=== PATIENT | male | born 1970 | race Caucasian/White ===

== ENCOUNTER 2019-01-01 14:51 | Observation (INO) | payer MEDICAID, SELFPAY ==
[2019-01-01 14:52] VITALS: BP 107/73; PULSE 75; PULSE 77; RESP 17; RESP 18; TEMP 36.4; O2SAT 97; BMI 24.3
--- NOTE | 2019-01-01 15:35 | ED.VISSUMM ---
- ER Visit Summary Date of Service: 01/01/19 Chief Complaint: Request heroin detox History of Present Illness: The patient is a 48 M presenting requesting heroin detox. Patient states that he typically uses 1/2 to 1 g of heroin per day. He has been using for the past 2 months. Prior to that he was on Suboxone. His last use was on Sunday night. He uses heroin and marijuana. Denies alcohol or other drug use. He complains of mild abdominal cramping, nausea, feeling fidgety. He called [facility] and was advised to come to the ED for admission. Physical Examination: Vitals are stable. Patient is afebrile. Alert no acute distress. HEENT exam is unremarkable. Neck is supple. Lungs are clear and equal bilaterally. Heart is regular rate and rhythm. Abdomen is soft nontender nondistended. Extremities are unremarkable. Skin is warm and dry. No focal neurologic deficit. Remainder of exam is unremarkable. Emergency Department Course and Treatment: CBC, chemistries unremarkable. Alcohol negative. Tox positive for opiates, amphetamines, cannabinoids. Discussed with hospitalist for admission. Disposition: Admission Impression: Heroin withdrawal This note was generated with [employer] dictation software. It may contain incorrect words, spelling, and punctuation that were not noted in review of the chart prior to signing ED Disposition - Plan for ED Patient: Referrals: NOT,DEFINED [NON-STAFF] -
[2019-01-01 15:45] LABS: Absolute Lymphocyte Count 2.29 X10^3/ul (0.83-4.51); Absolute Neutrophil Count 4.4 X10^3/uL (2.0-7.7); Basophil# 0.03 X10^3/uL; Basophil% 0.4 % (0-1); Eosinophil# 0.36 X10^3/uL; Eosinophils% 4.7 % (0-5); Hematocrit 36.8 % (40-54); Hemoglobin 12.7 g/dl (13.0-16.5); Lymphocyte # 2.29 X10^3/ul (4.0); Lymphocyte % 29.7 % (19-41); Mean Corp Hgb Conc 34.5 g/gl (32-36); Mean Corpuscular Hgb 30.5 pg (27.0-32.0); Mean Corpuscular Volume 88.5 fL (80-94); Mean Platelet Vol. 9.9 fl (6.2-12.0); Monocyte# 0.62 X10^3/uL; Neutrophil % 57.1 % (47-70); Platelet Count 177 K/mm3 (150-450); RBC Distribution Width CV 13.3 % (11.6-14.6); RBC Distribution Width SD 42.9 fl (35.1-43.9); Red Blood Count 4.16 M/mm3 (4.6-6.2); White Blood Count 7.7 K/mm3 (4.4-11.0)
[2019-01-01 15:46] LABS: POSITIVE COUNT NO; POSITIVE DIFFERENTIAL NO; POSITIVE MORPHOLOGY NO
[2019-01-01 15:54] LABS: Anion Gap 5 (5-15); BUN 9 mg/dL (7-18); BUN/Creat Ratio 10.4 RATIO (10-20); Calcium,Total 8.9 mg/dL (8.5-10.1); Chloride 107 mmol/L (98-107); Creatinine, Serum 0.86 mg/dL (0.70-1.30); EST Glomerular Filtration Rate 101 mL/min (>60); Est Glom Filt Rate - Afr Amer 122 mL/min (>60); Estimated Creatinine Clearance 99.28 ml/min; Glucose 129 mg/dL (74-106); Potassium 3.7 mmol/L (3.5-5.1); Sodium Level 144 mmol/L (136-145)
[2019-01-01 16:04] LABS: Amphetamine Urine VISTA POSITIVE (<1000 ng/mL); Barbiturate Urine VISTA NEGATIVE (< 200 ng/mL); Benzodiazepine Urine VISTA NEGATIVE (< 200 ng/mL); Cocaine Urine VISTA NEGATIVE (< 300 ng/mL); Ecstacy Urine VISTA NEGATIVE (< 500 ng/mL); Methadone Urine VISTA NEGATIVE (< 300 ng/mL); PCP Urine VISTA NEGATIVE (< 25 ng/mL); THC Urine VISTA POSITIVE (< 50 ng/mL); Vista UDS pH Range 7
[2019-01-01 16:12] LABS: Alcohol, Blood (Medical)-Serum < 3.0 mg/dL
--- NOTE | 2019-01-01 16:52 | NURSING ---
DR JUAN CARRERA
--- NOTE | 2019-01-01 16:53 | NURSING ---
MED SURG HEROIN WITHDRAWAL ASHELFAH
--- NOTE | 2019-01-01 17:02 | HP.PCM_ITS ---
Problem List (1) Acute opioid withdrawal Status: Acute (2) Opioid abuse Status: Chronic (3) Asthma Status: Chronic History of Present Illness Date of Admission: 01/01/19 Chief Complaint: Acute opiate withdrawal. The patient is a 48 year old M with past medical history as mentioned above presented to the emergency room requesting admission for acute opiate withdrawal for medical stabilization. Patient has been using IV heroin half to 1 g every day for the last 2 months and his last use was this past Sunday. He has been using IV heroin intermittently for most of his life and he failed detoxification in the past and he relapsed. Also, he admitted smoking marijuana sometimes. Today, he presented to the ED because of abdominal cramps, mild, associated with nausea and diarrhea as well as body aches and pains and without aggravating or relieving factors. He reported anxiety and restlessness were as well. In the emergency department, his vital signs were stable. His routine blood work was unremarkable. Urine drug screen was positive for opioids, amphetamines and cannabinoids. Blood alcohol level is less than 3. He is being admitted for acute opiate withdrawal for medical stabilization. Past Medical History Past Medical History (Chronic Problems): Chronic Problems Opioid abuse (Chronic) Asthma (Chronic) Allergies No Known Allergies Allergy (Verified 01/01/19 14:52) Home Medications: Ambulatory Orders Medication Instructions Recorded Albuterol Sulfate [Albuterol 18 gm IH Q4H PRN PRN 01/01/19 Sulfate Hfa] Clonidine HCl [Catapres] 0.1 mg PO 4X/DAY 01/01/19 Dicyclomine HCl 20 mg PO TID 01/01/19 Ondansetron [Zofran Odt] 4 mg PO Q8H PRN PRN 01/01/19 hydrOXYzine pamoate capsule 25 mg PO TID PRN PRN 01/01/19 [Vistaril pamoate capsule] Surgical History: no surgical history Psychiatric History: No pertinent psych hx Smoking Status: Current every day smoker Tobacco Use: Cigarettes Alcohol: None Drugs: Heroin, Marijuana - *Family History Maternal History Items: Diabetes, Hypertension Paternal History Items: Diabetes, Hypertension Review of Systems Constitutional: Reports: Malaise, Fatigue. Denies: Anorexia, Chills, Fever, Weakness Eyes: Denies: Blurred vision, Double vision, Drainage, Redness HEENT: Denies: Difficulty Hearing, Ear Pain, Eye Pain, Nasal Congestion, Sore Throat Cardiovascular: Denies: Chest Pain, Chest Pressure, Edema, Heaviness, Light Headedness, Palpitations, Syncope Respiratory: Denies: Cough, Pleuritic Pain, Shortness of Breath, Shortness of breath at rest, Sputum production, Wheezing Gastrointestinal: Reports: Diarrhea, Nausea. Denies: Abdominal Pain, Constipation, Vomiting Genitourinary: Denies: Dysuria, Frequency, Hematuria Musculoskeletal: Reports: Muscle pain. Denies: Arm Pain, Back Pain, Foot Pain Skin: Denies: Dryness, Rash Neurological: Denies: Balance problems, Double vision, Change in Speech, Slurred speech, Confusion, Focal weakness, Headaches, Incoordination Psychiatric: Denies: Anxiety, Depression Endocrine: Denies: Change in Body Habitus, Polydipsia, Polyuria VTE Information - Inpt Only VTE Present on Admission: No VTE Mechan Device Prophylaxis: None VTE Pharm Prophylaxis ordered?: No Patient Problems: Active and Suspected Problems Acute opioid withdrawal (Acute) - Physical Exam General: Alert, Oriented x3, Cooperative, No apparent distress HEENT: Atraumatic, PERRLA, EOMI, Normocephalic Oral: Moist Mucosa, No Gingival or Mucosal Lesions/ Ulcerations Neck: Supple, No JVD, Negative Carotid Bruits, Trachea Midline, Thyroid Normal Size and Texture Lungs: Clear to auscultation, Normal air movement, No rhonchi, No wheeze, No rales Cardiovascular: Regular rate, Regular Rhythm, Normal S1, Normal S2, No murmurs Abdomen: Bowel Sounds Present, Soft, Non Tender, Non-Distended, No Hepato-spl enomegaly Extremities: No clubbing, No cyanosis, No edema Skin: No rashes, No breakdown Lymphatic: No Cervical, Supraclavicular, or Inguinal Adenopathy Neurological: Cranial nerves II-XII grossly intact, Motor Exam 5/5 strength throughout Psych/Mental Status: Normal Affect, Appropriate, Alert and oriented to time, place, person, mood and affect Vital Signs Temp Pulse Resp BP Pulse Ox 97.5 F L 77 18 107/73 97 01/01/19 14:52 01/01/19 14:52 01/01/19 14:52 01/01/19 14:52 01/01/19 14:52 Oxygen Delivery Method Room Air Weight: 154 lb 15.759 oz Body Mass Index (BMI) 24.3 Laboratory Tests Past 24 Hrs 01/01/19 01/01/19 01/01/19 15:35 15:35 15:35 WBC 7.7 RBC 4.16 L Hgb 12.7 L Hct 36.8 L MCV 88.5 MCH 30.5 MCHC 34.5 RDW 13.3 RDW Differential 42.9 Plt Count 177 MPV 9.9 Immature Gran % (Auto) 0.100 Neut % (Auto) 57.1 Lymph % (Auto) 29.7 [place] % (Auto) 8.0 Eos % (Auto) 4.7 Baso % (Auto) 0.4 Absolute Neuts (auto) 4.4 Absolute Lymphs (auto) 2.29 Total Counted Not Reportable Sodium 144 Potassium 3.7 Chloride 107 Carbon Dioxide 32.0 Anion Gap 5 BUN 9 Creatinine 0.86 Estim Creat Clear Calc 99.28 Est GFR (MDRD) Af Amer 122 Est GFR (MDRD) Non-Af 101 BUN/Creatinine Ratio 10.4 Glucose 129 H Calcium 8.9 Urine Opiates Screen Urine Methadone Screen Ur Barbiturates Screen Ur Phencyclidine Scrn Ur Amphetamines Screen U Methamphetamin-MDMA U Benzodiazepines Scrn Urine Cocaine Screen U Cannabinoids Screen Ur Drug Screen Comment Ethyl Alcohol < 3.0 01/01/19 15:42 WBC RBC Hgb Hct MCV MCH MCHC RDW RDW Differential Plt Count MPV Immature Gran % (Auto) Neut % (Auto) Lymph % (Auto) [place] % (Auto) Eos % (Auto) Baso % (Auto) Absolute Neuts (auto) Absolute Lymphs (auto) Total Counted Sodium Potassium Chloride Carbon Dioxide Anion Gap BUN Creatinine Estim Creat Clear Calc Est GFR (MDRD) Af Amer Est GFR (MDRD) Non-Af BUN/Creatinine Ratio Glucose Calcium Urine Opiates Screen POSITIVE H Urine Methadone Screen NEGATIVE Ur Barbiturates Screen NEGATIVE Ur Phencyclidine Scrn NEGATIVE Ur Amphetamines Screen POSITIVE H U Methamphetamin-MDMA NEGATIVE U Benzodiazepines Scrn NEGATIVE Urine Cocaine Screen NEGATIVE U Cannabinoids Screen POSITIVE H Ur Drug Screen Comment Ethyl Alcohol Assessment/Plan All Active Problems Acute opioid withdrawal (Acute) This is a 48 years old male patient presented to the emergency department requesting admission for acute opioid withdrawal for medical stabilization. #1 acute opioid withdrawal: Patient has been using IV heroin daily over the last couple of months, has been using IV heroin intermittently for most of his life and he failed medical stabilization in the past and relapsed. His vital signs are stable. Routine blood work was unremarkable. Urine drug screen was reviewed as above. Plan: Admit to MedSurg floor, initiate [facility] protocol with every course of Subutex, PRN Tylenol, ibuprofen, Catapres, Bentyl, Vistaril, methocarbamol, Zofran, Mirapex and nightly trazodone. #2 asthma currently stable, pulse ox is maintained on room air. #3 tobacco abuse: NicoDerm patch. #4 DVT prophylaxis: Low risk patient, no prophylaxis indicated. This note was generated with [employer] dictation software. It may contain incorrect words, spelling, and punctuation that were not noted in checking the note before signing. Code Visit Inpatient E&M: 99896 Init Hosp L2
[2019-01-01 17:24] VITALS: BP 115/69; PULSE 76; RESP 18; O2SAT 98
[2019-01-01 17:58] VITALS: BMI 24.9
[2019-01-01 18:00] VITALS: BP 109/60; PULSE 74; RESP 18; TEMP 36.8
[2019-01-01] MEDS: Methocarbamol 750 MG Tablet PO (18:36)
[2019-01-01] MEDS: Buprenorphine HCl 2 MG TAB.SUBL SL (18:36)
[2019-01-01] MEDS: hydrOXYzine PAM 25 MG Capsule 50 MG PO (18:36)
[2019-01-01] MEDS: Dicyclomine 10 MG Capsule 20 MG PO (18:39)
[2019-01-01 21:18] VITALS: BP 115/65; PULSE 76; RESP 18; TEMP 36.7
[2019-01-01] MEDS: traZODone 50 MG Tablet PO (21:23)
[2019-01-01] MEDS: Pramipexole Di-HCl 0.25 MG Tablet PO (21:23)
[2019-01-01] MEDS: Ondansetron ODT 4 MG Tablet PO (21:25)
[2019-01-02 02:37] VITALS: BP 120/69; PULSE 57; RESP 16; TEMP 36.6
[2019-01-02] MEDS: Buprenorphine HCl 2 MG TAB.SUBL SL ×3 (02:40→18:33)
[2019-01-02 06:41] VITALS: BP 126/88; PULSE 58; RESP 16; TEMP 36.9
--- NOTE | 2019-01-02 07:32 | NURSING ---
Left a message for [facility] to see patient.
[2019-01-02 10:00] VITALS: BP 128/78; PULSE 69; RESP 16; RESP 18; TEMP 36.8
[2019-01-02] MEDS: Ondansetron ODT 4 MG Tablet PO ×2 (10:00→19:56)
[2019-01-02] MEDS: Ibuprofen 600 MG Tablet PO ×2 (10:00→19:56)
[2019-01-02] MEDS: cloNIDine HCl 0.1 MG Tablet PO (10:05)
--- NOTE | 2019-01-02 10:20 | [facility] ---
Patient has follow up appointment with [facility] on 01/06/19 and 01/09/19 for labwork follow up and AOD assessment. Patient states his emergency contact, Dennis, will be picking him up on from the hospital when he is discharged.
--- NOTE | 2019-01-02 12:24 | PN_ITS ---
Patient Problems: Active and Suspected Problems Acute opioid withdrawal (Acute) Subjective: Pt states medication for RLS made RLS worse and that he could not sleep. He is requesting neurontin. Feels worse today. C/o ongoing RLS, body aches, anxiety. No acute issues. Plans on pursuing inpatient rehab at [facility] and vivitrol injections in [place]. - Physical Exam General: Alert, Oriented x3, Cooperative HEENT: Atraumatic, PERRLA, EOMI, Normocephalic Neck: Supple, No JVD, Negative Carotid Bruits Lungs: Clear to auscultation, Normal air movement Cardiovascular: Regular rate, No murmurs Abdomen: Bowel Sounds Present, Soft, Non Tender Extremities: No edema, Capillary Refill Less than 3 Seconds Skin: No rashes, No breakdown Musculoskeletal: No Tenderness to Palpation of Joints or Extremities Neurological: Cranial nerves II-XII grossly intact Psych/Mental Status: Normal Affect, Appropriate, Alert and oriented to time, place, person, mood and affect Vital Signs Temp Pulse Resp BP Pulse Ox 98.3 F 69 16 128/78 H 98 01/02/19 10:00 01/02/19 10:00 01/02/19 10:00 01/02/19 10:00 01/01/19 17:24 Oxygen Delivery Method Room Air Weight: 159 lb 2.78 oz Body Mass Index (BMI) 24.9 Laboratory Tests Past 24 Hrs 01/01/19 01/01/19 01/01/19 15:35 15:35 15:35 WBC 7.7 RBC 4.16 L Hgb 12.7 L Hct 36.8 L MCV 88.5 MCH 30.5 MCHC 34.5 RDW 13.3 RDW Differential 42.9 Plt Count 177 MPV 9.9 Immature Gran % (Auto) 0.100 Neut % (Auto) 57.1 Lymph % (Auto) 29.7 [place] % (Auto) 8.0 Eos % (Auto) 4.7 Baso % (Auto) 0.4 Absolute Neuts (auto) 4.4 Absolute Lymphs (auto) 2.29 Total Counted Not Reportable Sodium 144 Potassium 3.7 Chloride 107 Carbon Dioxide 32.0 Anion Gap 5 BUN 9 Creatinine 0.86 Estim Creat Clear Calc 99.28 Est GFR (MDRD) Af Amer 122 Est GFR (MDRD) Non-Af 101 BUN/Creatinine Ratio 10.4 Glucose 129 H Calcium 8.9 Urine Opiates Screen Urine Methadone Screen Ur Barbiturates Screen Ur Phencyclidine Scrn Ur Amphetamines Screen U Methamphetamin-MDMA U Benzodiazepines Scrn Urine Cocaine Screen U Cannabinoids Screen Ur Drug Screen Comment Ethyl Alcohol < 3.0 01/01/19 15:42 WBC RBC Hgb Hct MCV MCH MCHC RDW RDW Differential Plt Count MPV Immature Gran % (Auto) Neut % (Auto) Lymph % (Auto) [place] % (Auto) Eos % (Auto) Baso % (Auto) Absolute Neuts (auto) Absolute Lymphs (auto) Total Counted Sodium Potassium Chloride Carbon Dioxide Anion Gap BUN Creatinine Estim Creat Clear Calc Est GFR (MDRD) Af Amer Est GFR (MDRD) Non-Af BUN/Creatinine Ratio Glucose Calcium Urine Opiates Screen POSITIVE H Urine Methadone Screen NEGATIVE Ur Barbiturates Screen NEGATIVE Ur Phencyclidine Scrn NEGATIVE Ur Amphetamines Screen POSITIVE H U Methamphetamin-MDMA NEGATIVE U Benzodiazepines Scrn NEGATIVE Urine Cocaine Screen NEGATIVE U Cannabinoids Screen POSITIVE H Ur Drug Screen Comment Ethyl Alcohol Medical Necessity - Tobacco Use Smoking Status: Current every day smoker Tobacco Use: Cigarettes Assessment/Plan All Active Problems Acute opioid withdrawal (Acute) 1. Acute opioid withdrawal - continue currently plan. IV heroin 1/2-1g per day for last two months. Last detox followed by 1 year successful suboxone therapy as o/p. 2. Asthma - no exacerbation. 3. Tobacco abuse - patch DVT ppx: early ambulation Medical stabilization day 2 of 4. This patient was seen by Sebas Siegel PA-C under the supervision of Dr. Thomas.
[2019-01-02 14:00] VITALS: BP 114/72; PULSE 65; RESP 16; TEMP 37.2
[2019-01-02] MEDS: hydrOXYzine PAM 25 MG Capsule 50 MG PO (14:21)
--- NOTE | 2019-01-02 14:31 | CHAPLAIN ---
Type of Pastoral Visit _x__ Initial Visit ___ Follow-up Visit ___ On-call Visit ___ General Patient Visit ___ Spiritual Assessment ___ Family Conference ___ Bereavement ___ Rapid Response ___ Code Blue ___ Other (describe below) Pastoral Care Referral From _x__ Patient ___ Family ___ Nurse ___ Physician ___ [place] Man ___ Museum Preparator ___ Other (describe below) Sacrament/Intervention _x__ Active listening ___ Anointing ___ Christianity ___ Bereavement ___ Communion ___ Vera exploration ___ ___ Life review ___ Prayer ___ Reconciliation ___ Sacrament of Sick _x__ Supportive presence ___ Wedding ___ Other (describe below) Pastoral Comments
[2019-01-02] MEDS: Gabapentin 100 MG Capsule PO (17:18)
[2019-01-02 18:00] VITALS: BP 110/66; PULSE 61; RESP 16; TEMP 37.1
[2019-01-02 19:49] VITALS: BP 100/65; PULSE 69; RESP 18; TEMP 36.6; O2SAT 100
[2019-01-02] MEDS: traZODone 50 MG Tablet PO (21:48)
[2019-01-03 02:28] VITALS: BP 127/81; PULSE 52; RESP 16; TEMP 36.5
[2019-01-03] MEDS: Methocarbamol 750 MG Tablet PO ×3 (02:32→17:05)
[2019-01-03] MEDS: Buprenorphine HCl 2 MG TAB.SUBL SL ×3 (02:33→22:06)
[2019-01-03] MEDS: Dicyclomine 10 MG Capsule 20 MG PO ×2 (08:08→17:05)
[2019-01-03] MEDS: Pramipexole Di-HCl 0.25 MG Tablet PO (08:08)
[2019-01-03] MEDS: hydrOXYzine PAM 25 MG Capsule 50 MG PO ×2 (08:08→17:04)
[2019-01-03] MEDS: Gabapentin 100 MG Capsule PO (08:11)
[2019-01-03 08:16] VITALS: BP 116/73; PULSE 56; RESP 18; TEMP 36.7; O2SAT 97
[2019-01-03 10:00] VITALS: BP 112/67; PULSE 57; RESP 16; TEMP 36.9
--- NOTE | 2019-01-03 10:03 | [facility] ---
Patient has discharge plan to go to [facility] in [place] [facility] upon discharge. 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
[2019-01-03] MEDS: Gabapentin 100 MG Capsule 200 MG PO (11:58)
--- NOTE | 2019-01-03 14:29 | PCM.PROGNOTE ---
Patient Problems: Active and Suspected Problems Acute opioid withdrawal (Acute) Subjective: Pt states only remaining withdrawal symptoms are RLE pain and back pain. Requesting higher doses of gabapentin as it has helped, and he was on 600 as outpatient. No N/V. In bed NAD. No tremor. No sweats. No abd pain. - Physical Exam General: Alert, Oriented x3, Cooperative HEENT: Atraumatic, PERRLA, EOMI, Normocephalic Neck: Supple, No JVD, Negative Carotid Bruits Lungs: Clear to auscultation, Normal air movement Cardiovascular: Regular rate, No murmurs Abdomen: Bowel Sounds Present, Soft, Non Tender Extremities: No edema, Capillary Refill Less than 3 Seconds Skin: No rashes, No breakdown Musculoskeletal: No Tenderness to Palpation of Joints or Extremities Neurological: Cranial nerves II-XII grossly intact Psych/Mental Status: Normal Affect, Appropriate, Alert and oriented to time, place, person, mood and affect Vital Signs Temp Pulse Resp BP Pulse Ox 98.5 F 57 L 16 112/67 97 01/03/19 10:01/03/19 10:01/03/19 10:01/03/19 10:00 01/03/19 08:16 Oxygen Delivery Method Room Air Weight: 159 lb 2.78 oz Body Mass Index (BMI) 24.9 Medical Necessity - Tobacco Use Smoking Status: Current every day smoker Tobacco Use: Cigarettes Assessment/Plan All Active Problems Acute opioid withdrawal (Acute) 1. Acute opioid withdrawal - continue currently plan. IV heroin 1/2-1g per day for last two months. Last detox followed by 1 year successful suboxone therapy as o/p. Gabapentin increased. Advised pt no Rx at DC and no higher dose than 300. 2. Asthma - no exacerbation. 3. Tobacco abuse - patch DVT ppx: early ambulation Medical stabilization day 3 of 4. Plan to DC sunday directly to inpatient unit in [place]. This patient was seen by Sebas Siegel PA-C under the supervision of Dr. Thomas.
[2019-01-03] MEDS: Gabapentin 300 MG Capsule PO (17:05)
[2019-01-03] MEDS: cloNIDine HCl 0.1 MG Tablet PO (17:05)
[2019-01-03 17:32] VITALS: BP 113/68; PULSE 66; RESP 16; TEMP 36.6
[2019-01-03 21:57] VITALS: BP 107/68; PULSE 57; RESP 16; TEMP 36.9
[2019-01-03 21:59] VITALS: O2SAT 100
[2019-01-03] MEDS: traZODone 50 MG Tablet PO (22:06)
[2019-01-03] MEDS: Ibuprofen 600 MG Tablet PO (22:06)
[2019-01-04 06:00] VITALS: BP 114/75; PULSE 54; RESP 16; TEMP 36.4
[2019-01-04] MEDS: Methocarbamol 750 MG Tablet PO (06:28)
[2019-01-04] MEDS: hydrOXYzine PAM 25 MG Capsule 50 MG PO (06:28)
[2019-01-04 08:21] VITALS: BP 102/68; PULSE 60; RESP 14; TEMP 36.5
[2019-01-04] MEDS: Gabapentin 300 MG Capsule PO (08:28)
[2019-01-04] MEDS: Ondansetron ODT 4 MG Tablet PO (08:28)
[2019-01-04] MEDS: Buprenorphine HCl 2 MG TAB.SUBL SL (10:15)
--- NOTE | 2019-01-04 10:52 | PCM.DC ---
- Discharge Diagnoses Current Active Problems: Current Active and Chronic Problems Acute opioid withdrawal (Acute) Opioid abuse (Chronic) Asthma (Chronic) You will use the following diet at home:: No restrictions Your food should be the consistency of: Regular Your liquids should be the consistency of: Regular/Thin Discharge Activity: Return to Normal Activity Allergies/Adverse Reactions: Allergies No Known Allergies Allergy (Verified 01/01/19 14:52) Medications to take at Discharge Albuterol Sulfate [Albuterol Sulfate Hfa] 18 gm IH Q4H PRN PRN 01/01/19 Clonidine HCl [Catapres] 0.1 mg PO 4X/DAY 01/01/19 Dicyclomine HCl 20 mg PO TID 01/01/19 Ondansetron [Zofran Odt] 4 mg PO Q8H PRN PRN 01/01/19 hydrOXYzine pamoate capsule [Vistaril pamoate capsule] 25 mg PO TID PRN PRN 01/01/19 Primary Care Physician: NOT,DEFINED [NON-STAFF] - Please follow up with your Primary Care Physician in: 2 weeks Test Results: Test results from this visit will be discussed in further detail at your follow-up appointment, if applicable. Proposed Discharge Date: 01/04/19
--- NOTE | 2019-01-04 12:24 | NURSING ---
THIS NURSE WITNESSED PT TOSS THE NEURONTIN OUT OF THE MED CUP ONTO THE BED BESIDE HIM. HE THEN HELD THE MED CUP TOWARD NURSE. WHEN I ASKED IF HE HAD THE MED IN HIS MOUTH HE SAID OH, OH, NO, AND THEN SAID SOMETHING ABOUT SOMETHING BEING SO LIGHT HE COULDNT FEEL IT. DR HEREDIA AND FEDE LEROY MADE AWARE.
--- NOTE | 2019-01-04 13:32 | DS.PCM_ITS ---
Discharge Date and Diagnosis Date of Admission: 01/01/19 Date of Discharge: 01/04/19 - Primary Discharge Diagnosis Acute heroin withdrawal Asthma Tobacco abuse - Secondary Discharge Diagnosis Chronic Problems Opioid abuse (Chronic) Asthma (Chronic) Hospital Course and Treatment Operations: None Procedures: None Summary of Care Provided: Hospital Course: The patient is a 48 year old M with pmhx of heroin abuse who presented to the ER in acute withdrawal requesting help with detox. He had been using 1g daily for 2 months intravenously. He had previously been through detox and stayed off heroin while using suboxone for a year before relapsing. He also smokes cigarettes, sometimes marijuana, and tested positive for amphetamines. He was admitted to the hospital and went through the medical stabilization program with a Subutex taper with good response to the taper. He was discharged to go directly to inpatient rehab in [place], in stable condition. He will need follow up with a PCP in 2 weeks. This patient was seen by Sebas Siegel PA-C under the supervision of Dr. Thomas. [] - Physical Exam General: Alert, Oriented x3, Cooperative HEENT: Atraumatic, PERRLA, EOMI, Normocephalic Neck: Supple, No JVD, Negative Carotid Bruits Lungs: Clear to auscultation, Normal air movement Cardiovascular: Regular rate, No murmurs Abdomen: Bowel Sounds Present, Soft, Non Tender Extremities: No edema, Capillary Refill Less than 3 Seconds Skin: No rashes, No breakdown Musculoskeletal: No Tenderness to Palpation of Joints or Extremities Neurological: Cranial nerves II-XII grossly intact Psych/Mental Status: Normal Affect, Appropriate Vital Signs Temp Pulse Resp BP Pulse Ox 97.7 F L 60 14 102/68 100 01/04/19 08:21 01/04/19 08:21 01/04/19 08:21 01/04/19 08:21 01/03/19 21:59 Oxygen Delivery Method Room Air Weight: 159 lb 2.78 oz Body Mass Index (BMI) 24.9 Discharge Diet: No Restrictions Discharge Activity: Return to Normal Activity Home Medications: Medications to take at Discharge Albuterol Sulfate [Albuterol Sulfate Hfa] 18 gm IH Q4H PRN PRN 01/01/19 Clonidine HCl [Catapres] 0.1 mg PO 4X/DAY 01/01/19 Dicyclomine HCl 20 mg PO TID 01/01/19 Ondansetron [Zofran Odt] 4 mg PO Q8H PRN PRN 01/01/19 hydrOXYzine pamoate capsule [Vistaril pamoate capsule] 25 mg PO TID PRN PRN 01/01/19 Primary Care Physician: NOT,DEFINED [NON-STAFF] - Please follow up with your Primary Care Physician in: 2 weeks Disposition: Home Minutes spent on discharge:: 35 Patient Condition:: Stable Medical Necessity - Tobacco Use Smoking Status: Current every day smoker Tobacco Use: Cigarettes Meaningful Use Info Meaningful Use Diagnoses (Choose all that apply): None applicable
== END 2019-01-04 11:07 | disposition home or self-care (01) | DRG 773 ==
LOC: ED 15:36 → MS2 17:31
PROVIDERS: Admitting Provider Hospitalist; Emergency Provider Emergency Medicine; Referring Provider Hospitalist; Visit Provider Internal Medicine
DX: F11.23 Opioid dependence with withdrawal (principal); F12.90 Cannabis use, unspecified, uncomplicated; J45.909 Unspecified asthma, uncomplicated; F17.210 Nicotine dependence, cigarettes, uncomplicated; Z79.899 Other long term (current) drug therapy
CPT/HCPCS: 80048; 80307; 80320; 85025; 99218; 99283; 99406; G0378; G0480